=== PATIENT | male | born 1965 | race Caucasian/White ===

== ENCOUNTER 2017-05-21 01:36 | Emergency (ER) | payer SELFPAY ==
[~2017-05-21] VITALS: Ht 193 cm; Wt 77.7 kg
[2017-05-21 01:39] VITALS: BP 135/77
== END 2017-05-21 02:26 | disposition left against medical advice (07) ==
LOC: ED 02:20
DX: R05 Cough (principal); Z53.21 Procedure and treatment not carried out due to patient leaving prior to being seen by health care provider